=== PATIENT | male | born 1960 | race Caucasian/White ===

== ENCOUNTER 2016-09-06 07:57 | Observation (INO) | payer OTHER ==
[~2016-09-06] VITALS: Ht 200.7 cm; Wt 163.1 kg
[2016-09-06] VITALS (10 sets, daily range): BP systolic 111–172; BP diastolic 70–103; PULSE 88–106; RESP 16–30; O2SAT 93–98
[~2016-09-06 07:57] MED LIST: AMLO5TAB2 PO; AMOX-366 PO
[2016-09-06] MEDS: Diltiazem Inj 125 MG in Dextrose 5% 100 ML IV SCH (08:37)
--- NOTE | 2016-09-06 08:37 | ED.REPORT ---
HPI-General Illness Date of Service Sep 06, 2016 ED Provider: The patient is a 55 year old male who presents to the emergency department complaining of substernal chest pain that woke him from sleep this morning at 0130. His pain has not improved since onset. He has also experienced shortness of breath. He has not had similar symptoms in the past. He denies history of atrial fibrillation. He denies fever, chills, cough, abdominal pain, nausea, vomiting, diarrhea, back pain, extremity pain or diaphoresis. He does not have a primary care provider. He is not on any medications. He denies any known drug allergies. Nursing Notes Stated Complaint: CHEST PAIN Chief Complaint: Chest Pain Nursing Notes Reviewed: Yes Allergies: Coded Allergies: No Known Allergies (Verified , 12/07/15) No Active Prescriptions or Reported Meds General Time Seen by MD: 08:37 Chief Complaint Chest pain Hx Obtained From: Patient Arrived By: Walk-in Sudden in Onset?: Yes Onset Occurred: 5 - 8 hours ago Symptom Duration: Since onset Location: : Chest Quality: Painful Severity: Current: Moderate Severity: Maximum: Moderate Recent Healthcare: No recent doctor visit, No recent hospitalization Similar Sx Previous: No Past Medical History Past Medical History Notes: No PCP Past Medical History Chronic bilateral lower extremity venous stasis Denies: Coronary artery disease, Diabetes mellitus, Hypertension Past Surgical History Hernia repair Reports: Cholecystectomy Family History Noncontributory Smoking History Never Smoker Social History Alcohol Use: Denies alcohol use Drug Use: Denies drug use Other Social History: Good social support, , Local resident Occupation Owns a furniture store Ambulatory Status Independent Review of Systems Full Review of Systems Constitutional: Denies: Chills, Fever Respiratory: Reports: Shortness of breath, Denies: Non-productive cough Cardiovascular: Reports: Chest pain GI: Denies: Abdominal pain, Diarrhea, Nausea, Vomiting Musculoskeletal: Denies: Back pain, Extremity pain Skin: Denies Diaphoresis Complete sys rev & neg: except as marked. Physical Exam Vital Signs Vital Signs Date Time Temp Pulse Resp B/P Pulse Ox O2 Delivery O2 Flow Rate FiO2 09/06/16 11:33 106 24 111/70 94 09/06/16 10:03 104 30 114/79 98 Nasal Cannula 2 09/06/16 09:05 105 24 120/89 93 Room Air 09/06/16 07:59 36.3 102 20 156/103 97 Room Air Initial VS: Reviewed Head / Eyes: Atraumatic, Normocephalic, PERRL ENT: Mucous membranes moist, Conjunctiva normal, No scleral icterus Neck: Supple, Non-tender, Full range of motion Abdomen / GI: Soft, Non-tender, No guarding, No rebound, No distention Lymphatic: No lymphadenopathy Extremities: Neuro intact, No tenderness Skin: Warm, Dry, No cyanosis Neurologic: Alert, Oriented, Nonfocal Psychiatric: Mood/affect normal, Behavior normal, Normal thought content General/Constitutional: Awake, Alert, Well appearing Color normal, not diaphoretic Respiratory / Chest: Atraumatic, Breath sounds NL, Breath sounds = bilat, No respiratory distress, No rales, No rhonchi, No wheezing, No retractions Cardiovascular: Heart sounds NL, No gallop, No murmurs, No rubs, Cap refill not delayed, Peripheral circulation NL, Pulses = bilaterally, No gross BP differential Heart Rate / Rhythm: Positive: Tachycardia Lower Extremity / Pelvis / MS: Neurologic intact Chronic venous stasis changes Interpretation & Diagnostics Lab Results Interpretation Result Diagram: 09/06/16 0826 09/06/16 0826 Test 09/06/16 08:26 09/06/16 10:15 White Blood Count 7.4th/mm3 (3.8-10.1) Red Blood Count 3.82mil/mm3 (4.40-5.80) Hemoglobin 12.6g/dL (13.8-17.2) Hematocrit 36.8% (41.0-50.0) Mean Corpuscular Volume 96.3fL (81-100) Mean Corpuscular Hemoglobin 33.0pg (27.0-35.0) Mean Corpuscular Hemoglobin Concent 34.2% (32.0-37.0) Red Cell Distribution Width 13.2% (12.3-15.4) Platelet Count 207bil/L (150-400) Neutrophils (%) (Auto) 74.9% (40-74) Lymphocytes (%) (Auto) 14.7% (14-46) Monocytes (%) (Auto) 9.1% (4-12) Eosinophils (%) (Auto) 0.9% (0-5) Basophils (%) (Auto) 0.3% (0-3) D-Dimer < 0.5mg/L (<0.50) Sodium Level 137mEq/L (134-144) Potassium Level 4.3mEq/L (3.5-5.2) Chloride Level 100mEq/L (97-108) Carbon Dioxide Level 23mmol/L (18-29) Blood Urea Nitrogen 18mg/dL (6-24) Creatinine 1.05mg/dL (0.76-1.27) Estimat Glomerular Filtration Rate 78mL/min (>59) Glucose Level 121mg/dL (60-99) Calcium Level 8.8mg/dL (8.5-10.1) Magnesium Level 1.9mg/dL (1.6-2.6) Total Bilirubin 0.9mg/dL (0.0-1.2) Aspartate Amino Transf (AST/SGOT) 18U/L (0-50) Alanine Aminotransferase (ALT/SGPT) 13U/L (0-44) Alkaline Phosphatase 62U/L (25-150) Total Protein 8.3g/dL (6.4-8.4) Albumin 4.1g/dL (3.4-5.0) Hold Calabrese Top Tube Received (Received) Troponin T < 0.010ug/L (0.0-0.011) ECG Interpretation ECG Interpretation: Atrial fibrillation with a rate of 127 Time: 08:09 Interpreted by: ED physician ECG Interpretation: Post-cardioversion: Sinus rhythm with PVCs No Ischemia Time: 13:02 Interpreted by: ED physician X-Ray Chest Interpretation Chest Xray Interpretation: IMPRESSION: 1. Low lung volumes, with bilateral atypical pneumonia versus edema. Dictated by: Nicolas Borges M.D. on 09/06/2016 at 8:42 Interpretation / Wet Read by: Interpret - Radiologist Procedures Electrical Cardioversion Electrical Cardioversion: 1251: 50 joules, still in atrial fibrillation 1252: 100 joules, still in atrial fibrillation 1253: 150 joules, converted back into sinus rhythm Time: 12:51 Procedure Performed by: ED physician Indication: Atrial fibrillation Consent / Setup / Site Prep: Informed consent provided, Consent from patient , Time-out performed, Placed on oxygen, Placed on pulse oximeter, Place on cardiac cath rn, Hand hygiene observed Procedural Sedation/Analgesia: Sedation: Propofol (60 mg) Joules: 150 Procedure Successful: Yes Post-Procedure Rhythm: Normal sinus rhythm Post-Procedure / Complications: No complications, Condition improved, Tolerated procedure well, Patient stable Proced Mod Sedation/Analgesia Time: 12:48 Procedure Performed by: ED physician Sedation Time: 10 - 15 min Consent / Setup: Informed consent provided, Consent from patient, No consent - emergent, Hand hygiene observed, Position supine Indication: Other (electrical cardioversion) Preparation: spa attendant applied, Pulse oximeter applied, Constant attendance, IV access established, Eval last meal time, Supplemental oxygen, Procedure explained, Suction available, End tidal CO2 mon applied VS Prior to Procedure: O2 saturation normal, Blood pressure normal, Respiratory rate normal Mallampati: Class & Anatomy: 1 tonsils/uvula/s palate Airway Exam: Normal anatomy CVS/Resp Exam: Normal breath sounds, Normal heart sounds Neuro Exam: Alert, No acute distress, Responsive Sedation: Sedation: Propofol (60 mg) ASA Classification: 1 normal healthy patient Response During Procedure: Handled secretions adeq, Maintained airway well, Oxygenation stable, Sedation appropriate, Vital signs stable Complications During/After: None Reversal: None required Mental Status After Procedure: Alert, Oriented X3, Response to verbal stim, Normal per age, At patient's baseline Post-Procedure: Alert prior to discharge, Ambulatory with assist, Pt rtn pre- proc baseline, Vital signs normal Attestation: I performed procedure, I performed sedation Re-Eval/Medical Decision Med Decision/Clinical Course 55-year-old gentleman with no previous cardiac disease awoke at 1:30 this morning with chest pain and rapid heart rate. Comes in with new onset atrial fibrillation rapid ventricular response. Initial workup including troponin is negative. Discussion with cardiology. I opted to cardiovert which was quite successful. Chest pain has somewhat abated now that he is back in sinus rhythm. Will admit for full cardiac workup and likely will benefit from echocardiogram as well. TSH is added to blood work. All concerns findings and diagnoses reviewed with patient and his today Source of Hx: Old records Time of Eval: 09:30 Re-Evaluation/Progress Note: Pain was improved with nitroglycerin. Time of Eval: 11:38 Re-Evaluation/Progress Note: Rechecked the patient. His symptoms are improved, however he does still complain of mild chest pain. Discussed results, diagnosis, and plan for admission with the patient. He understands and agrees. All questions were addressed. Time of Eval: 12:19 Re-Evaluation/Progress Note: Rechecked the patient. Discussed plan for cardioversion. He agrees with plan. All questions were addressed. Time of Eval: 12:35 Re-Evaluation/Progress Note: Consent was signed for the procedure. Time of Eval: 13:29 Re-Evaluation/Progress Note: The patient is feeling much better. Consultation #1: Referral / Consult Name: Lubna Gómez MD Consulted With: Cardiology Call Returned at: 12:09 Dial Brusher: Agrees with eval, Agrees with plan Note: He would like us to cardiovert him in the emergency department. Consultation #2: Referral / Consult Name: Evaristo Blackwood MD Consulted With: Hospitalist Call Returned at: 12:45 Dial Brusher: Will see patient, Agrees with eval, Agrees with plan, Accepts admit Counseled Regarding: Diagnosis, Lab results, Need for admission Discharge & Departure Primary Impression: New onset atrial fibrillation Additional Impression: Chest pain Chest pain type: unspecified Qualified Code: R07.9 - Chest pain, unspecified Disposition: ADMITTED TO HOSPITAL Discharge Condition All VS Reviewed: Yes Condition: Stable Referrals: NOPCP (PCP) Scribe Attestation Portions of this note were transcribed by Melinda Araya. I, Dr. Fishman personally performed the history, physical exam and medical decision-making; I reviewed and confirmed the accuracy of the information in the transcribed note. Signed by: Getachew Kemp, 09/06/2016 and [id number] Villavicencio MD Sep 06, 2016 08:37 Melinda Araya Sep 06, 2016 08:40
[2016-09-06 08:38] LABS: BASOPHILS % (AUTO) 0.3 % (0-3); EOSINOPHILS % (AUTO) 0.9 % (0-5); MONOCYTES % (AUTO) 9.1 % (4-12); Mean Corpuscular Volume 96.3 fL (81-100); NEUTROPHILS % (AUTO) 74.9 % (40-74); Platelet Count 207 bil/L (150-400)
[2016-09-06] MEDS ORDERED: MeTOProlol 1 mg/mL 5 mL Inj IVPUSH PRN (08:40)
[2016-09-06] MEDS ORDERED: Diltiazem 5 mg/mL 5 mL Inj IVPUSH ONE (08:40)
--- NOTE | 2016-09-06 08:45 | DRSVH ---
PROCEDURE: X-RAY CHEST ONE VIEW, PORTABLE ([id number]) INDICATIONS: chest pain TECHNIQUE: One view of the chest was acquired. COMPARISON: [facility], CR, XR CHEST 1VW (PORTABLE), 12/07/2015, 18:44. FINDINGS: Surgical changes and devices: None. Lungs and pleura: No pleural effusions or pneumothorax. Lung volumes are low. Moderate patchy bilate ral mid and lower lung coarse reticulonodular opacity is present. Mediastinum: Mediastinal contours appear normal. Heart size is enlarged. Bones and chest wall: No suspicious bony lesions. Overlying soft tissues appear unremarkable. IMPRESSION: 1. Low lung volumes, with bilateral atypical pneumonia versus edema. Dictated by: Nicolas Borges M.D. on 09/06/2016 at 8:42 Approved by: Nicolas Borges M.D. on 09/06/2016 at 8:43
[2016-09-06 09:12] LABS: Magnesium 1.9 mg/dL (1.6-2.6)
[2016-09-06 09:18] LABS: TROPONIN T < 0.010 ug/L (0.0-0.011)
[2016-09-06] MEDS ORDERED: Nitroglycerin 2% 1 Gm Ointment TOPICAL ONE (09:40)
[2016-09-06] MEDS ORDERED: Propofol 10 mg/mL 20 mL Inj ONE (12:36)
[2016-09-06] MEDS ORDERED: Propofol 10 mg/mL 20 mL Inj IVPUSH ONE (12:40)
[2016-09-06] MEDS ORDERED: Alum-Mag Hydrox-Simeth 30 mL Suspension PO PRN (13:40)
[2016-09-06] MEDS ORDERED: Ondansetron 2 mg/mL 2 mL Inj IVPUSH PRN (13:40)
[2016-09-06] MEDS ORDERED: 0.9% Sodium Chloride 1,000 ML IV SCH (13:53)
--- NOTE | 2016-09-06 13:53 | PCM.HPMED ---
Subjective Date of Service Sep 06, 2016 Primary Provider: Admitting Physician: Evaristo Blackwood MD Primary Care Physician: Nopcp Attending Physician: Evaristo Blackwood MD Chief Complaint: Chest pain palpitation History of Present Illness: The patient is a 55 year old male who presents to the emergency department complaining of substernal chest pain that woke him from sleep this morning at 0130. His pain has not improved since onset. He has also experienced shortness of breath. He has not had similar symptoms in the past. He denies history of atrial fibrillation. He denies fever, chills, cough, abdominal pain, nausea, vomiting, diarrhea, back pain, extremity pain or diaphoresis. He does not have a primary care provider. He is not on any medications. He denies any known drug allergies. Review of Systems: Gen.: No fevers chills weight loss weight gain Eyes: no visual disturbances or blurring vision HEENT: No nose/throat drainage, no pain in ears or throat, no hearing loss Lymph: No lymph nodes noted Cardiac: no orthopnea, PND, or dyspnea on exertion + pedal edema (chronic) chest pain associated with the palpitations Pulmonary: no cough, wheezing or bringing up of sputum GI: No anorexia nausea vomiting blood or black in the stool : no dysuria hematuria urinary frequency or decrease in urine output Musculoskeletal: Joint swelling no joint pain no new muscle aches or back pain Neuro: No syncope, seizures no loss of consciousness no new focal weakness, numbness or tingling Psychiatric: New new anxiety insomnia or depression Endocrine: No new heat or cold intolerances polyuria or polydipsia Hematology: No lymphadenopathy or easy bleeding or bruising noted skin: No new rashes, stasis dermatitis Allergies Coded Allergies: No Known Allergies (Verified , 12/07/15) Home Medications None PMH No PCP Past Medical History Chronic bilateral lower extremity venous stasis Denies: Coronary artery disease, Diabetes mellitus, Hypertension Past Surgical History Hernia repair Reports: Cholecystectomy Family History-no known history of coronary artery disease or cancer Noncontributory Social History- Alcohol Use: Denies alcohol use Drug Use: Denies drug use Other Social History: Good social support, , Local resident Smoking History Never Smoker Occupation Owns a furniture store Social History Hx Alcohol Use: No Hx Substance Use: No Hx Tobacco Use: No Smoking Status: Never Smoker Exam Vital Signs Vital Sign - Last Date Time Temp Pulse Resp B/P Pulse Ox O2 Delivery O2 Flow Rate FiO2 09/06/16 11:33 106 24 111/70 94 09/06/16 10:03 Nasal Cannula 2 09/06/16 07:59 36.3 Exam Gen.- A+ O 3 no apparent distress. Heavy to obese male Eyes- open conjunctiva clear, pupils equal nonicteric Mouth- oral mucosa moist, no exudate ENT- ears normal, nose normal Neck- supple/trach midline CVS- RRR no murmur or gallop, positive pedal edema Lungs CTA GI- NABS/NT soft Musc- moving 4 no obvious deformity Neuro- cranial nerves II through XII intact to gross examination, nonfocal Skin- warm and dry, no rashes/lesions/wounds noted stasis dermatitis noted bilaterally mid calf down to ankles Psych- pleasant and appropriate, Lab and Diagnostics Labs TSH 0.68, LFTs 12 mL, troponin normal 3 Result Diagram: 09/06/16 0826 09/06/16 08 X-Rays, CTs and MRIs CXR 09/06 IMPRESSION: 1. Low lung volumes, with bilateral atypical pneumonia versus edema. 12-lead ECG Personally reviewed 09/06 . Atrial fibrillation rate 127, EDC 467 ms . When compared with ECG of 07-Dec-2015 18:06:17, * Atrial fibrillation has replaced sinus rhythm * Significant rate increase Cardiac Echo Impressions ECHO 09/03 Paliwal Interpretation Summary The left ventricle is borderline dilated. The ejection fraction is estimated to be 60-65%. The right ventricle is grossly normal size. The right ventricular systolic function is normal. No significant valvular pathology seen. The ascending aorta is moderately enlarged. The IVC is dilated (diameter is greater than 2.1 cm) and it collapses less than 50% with a sniff. This suggests a high right atrial pressure of 15 mm Hg. Assessment & Plan 55-year-old male without prior workup admitted with chest pain with A. fib with RVR. Echocardiogram is normal, will do stress test in the morning. A. fib with RVR- chads score probably about one does not qualify for anticoagulation. HTN- for now we will utilize hydralazine/Norvasc I would like utilize metoprolol after his stress test and probably lisinopril. Obesity-weight loss recommended Prophylaxis- none indicated Disposition- full code from home Patient snores and stops breathing will order overnight oximetry patient may have sleep apnea. Time spent 45 minutes Evaristo Blackwood MD Sep 06, 2016 13:53
[2016-09-06] MEDS ORDERED: Polyethylene Glycol (PEG) 17 Gm Powder PO PRN (13:55)
[2016-09-06] MEDS ORDERED: Senna-Docusate 8.6-50 mg Tablet PO PRN (13:55)
--- NOTE | 2016-09-06 14:20 | NUR ---
Transfer from ED Pt. arrived to room 2030 PCC from the ED. Pt. has no c/o pain, CP, or SOB. Pt. can ambulate by himself in the room and is independent. Pt. at this time resting comfortably in bed.
[2016-09-06] MEDS: Sodium Chloride LOK Flush 10 mL Syringe IVFLUSH SCH (15:42)
--- NOTE | 2016-09-06 16:09 | DRSVH ---
[facility] [address] [place] [address] Echocardiogram Report Name: CLYDE BLOUNT LStudy Date: 09/06/2016 Height: 79 in Hospital Exam Location: [facility] Weight: 351 lb Gender: Male BSA: 2.9 m2 : 1960 Age: 55 yrs BP: 111/70 mmHg Reason For Study: CHEST PAIN Ordering Physician: Performed By: Antonio Branch Interpretation Summary The left ventricle is borderline dilated. The ejection fraction is estimated to be 60-65%. The right ventricle is grossly normal size. The right ventricular systolic function is normal. No significant valvular pathology seen. The ascending aorta is moderately enlarged. The IVC is dilated (diameter is greater than 2.1 cm) and it collapses less than 50% with a sniff. This suggests a high right atrial pressure of 15 mm Hg. Procedure: A two-dimensional transthoracic echocardiogram with color flow and Doppler was performed. The study quality was technically difficult. There is no prior echocardiogram noted for this patient. A contrast injection of Definity was performed to improve assessment of LV function. The patient was in normal sinus rhythm during the exam. Left Ventricle: The left ventricle is borderline dilated. Left ventricular wall thickness is mildly increased. There is no thrombus. The ejection fraction is estimated to be 60-65%. There are no obvious focal wall motion abnormalities noted but poor endocardial definition reduces the sensitivity for the detection of such. Spectral Doppler of the mitral valve shows a normal E/A wave ratio. Right Ventricle: The right ventricle is grossly normal size. The right ventricular systolic function is normal. Atria: The left atrium is mildly dilated. The right atrium is mildly dilated. The interatrial septum is intact with no evidence for an atrial septal defect. Mitral Valve: There is mild mitral annular calcification. The mitral valve leaflets are slightly calcified. There is trace mitral regurgitation. Aortic Valve: The aortic valve is trileaflet. The aortic valve opens well. There is mild aortic valve sclerosis. No aortic regurgitation is present. Tricuspid Valve: The tricuspid valve is normal in structure and function. Pulmonary artery pressures cannot be estimated because of the lack of a measurable TR jet velocity. No tricuspid regurgitation. Pulmonic Valve: The pulmonic valve is not well seen, but is grossly normal. There is trace pulmonic regurgitation. Great Vessels: The aortic root is normal size. The ascending aorta is moderately enlarged. The aortic arch is mildly enlarged. The pulmonary artery is normal size. The IVC is dilated (diameter is greater than 2.1 cm) and it collapses less than 50% with a sniff. This suggests a high right atrial pressure of 15 mm Hg. Pericardium/ Pleura There is no pericardial effusion. There is no pleural effusion. MMode/2D Measurements & Calculations LVIDd: 5.8 cm LA dimension: 5.2 cm RA long axis Ao root diam LVIDs: 4.2 cm FS: 28.1 % LA A2 area: 32.2 cm RA area Aortic Jxn: 3.1 cm EPSS: 0.88 cm LA A4 area: 32.6 cm asc Aorta Diam IVSd: 1.3 cm LA length (vol) : 31.8 cm LVPWd: 1.2 cm RA vol Ao Arch Diam (Prox LA vol: 119.5 ml : 138.ml Trans): 3.5 cm LA vol index RA : 47.7 mm2 IVC diam: 2.8 cm LV lujan. diameter/BSA LV sys. diameter/BSA RVD1 (basal) RVD2 (mid): 4.1 cm (cm/m^2): 2.0 (cm/m^2): 1.4 Doppler Measurements & Calculations Ao V2 max MV E max andrew MV E/A: 2.7 PA V2 max : 120.2 cm/sec : 99.5 cm/sec Med Peak E' Andrew : 67.5 cm/sec Ao max PG MV A max andrew PA mean PG : 5.8 mmHg : 37.2 cm/sec E/E' med: 22.4 Ao mean PG PA Accel Time : 3.5 mmHg : 0.07 sec MV dec time Ao V2 mean PA V2 mean : 0.13 sec : 89.5 cm/sec : 49.7 cm/sec Ao V2 VTI: 22.8 cm PA pr(Accel) : 41.6 mmHg Reading Physician:PM
--- NOTE | 2016-09-06 17:30 | NUR ---
Blood Pressure Pt. had a blood pressure of 172/93, rechecked and it was 152/102. made aware.
[2016-09-06] MEDS ORDERED: Diltiazem 5 mg/mL 5 mL Inj IVPUSH PRN (17:40)
[2016-09-07] VITALS (8 sets, daily range): BP systolic 125–165; BP diastolic 77–111; PULSE 82–94; RESP 16–20; O2SAT 92–97
[2016-09-07] MEDS: Sodium Chloride LOK Flush 10 mL Syringe IVFLUSH SCH ×3 (01:21→17:17)
--- NOTE | 2016-09-07 04:42 | NUR ---
BP/Procedure Prep Patient with BP 165/111. PRN hydralazine given per orders. BP improved to 125/77. Patient NPO after midnight for stress test, beta blockers held and no caffeine given. Patient resting well overnight. Continue to monitor.
[2016-09-07] MEDS: Diltiazem Inj 125 MG in Dextrose 5% 100 ML IV SCH (08:37)
--- NOTE | 2016-09-07 16:09 | NUR ---
Social Work: Screen D: Per EMR review, pt is a 55 year old male admitted for chest pain/AFIB post cardioversion. Pt is [employer] insurance. Pt does not have a PCP. NOK Is [place], . Readmit score is low, 0/8. Advanced directives information provided to pt. Pt lives in [place], is I and works as a salesman. Pt is scheduled for stress test. Pt has been I during admission. No social work needs identified at this time. A: [place]. P: Anticipate pt to discharge home via POV once medically stable; [employer] to continue to follow. SAMIR Carrillo
--- NOTE | 2016-09-07 18:53 | PCM.PNMED ---
Subjective Date of Service Sep 07, 2016 Subjective No complaints of chest pain, dyspnea nausea or vomiting no palpitations Exam Vital Signs Vital Sign - Last Date Time Temp Pulse Resp B/P Pulse Ox O2 Delivery O2 Flow Rate FiO2 09/07/16 16:08 36.6 82 20 137/87 95 Room Air 09/06/16 14:17 2 Intake and Output 09/06/16 09/06/16 09/07/16 Cumulative From/Thru 15:00 23:00 07:00 09/06/16 07:59 - 09/07/16 06:03 Intake Total 1000 ml 405 ml 1405 ml Output Total 250 ml 875 ml 1125 ml Balance 1000 ml -250 ml -470 ml 280 ml Intake Oral 375 ml 375 ml IV Total 1000 ml 30 ml 1030 ml Output Urine Total 250 ml 875 ml 1125 ml Exam Gen.- A+ O 3 no apparent distress. Heavy to obese male Eyes- open conjunctiva clear, pupils equal nonicteric Mouth- oral mucosa moist, no exudate ENT- ears normal, nose normal Neck- supple/trach midline CVS- RRR Lungs regular rate no accessory muscle usage no evidence of respiratory distress GI-generous pannus Musc- moving 4 no obvious deformity Neuro- cranial nerves II through XII intact to gross examination, nonfocal Skin- warm and dry, no rashes/lesions/wounds noted stasis dermatitis noted bilaterally mid calf down to ankles Psych- pleasant and appropriate, Lab and Diagnostics Result Diagram: 09/06/16 0826 09/06/16 0826 X-Rays, CTs and MRIs CXR 09/06 IMPRESSION: 1. Low lung volumes, with bilateral atypical pneumonia versus edema. 12-lead ECG Personally reviewed 09/06 . Atrial fibrillation rate 127, EDC 467 ms . When compared with ECG of 07-Dec-2015 18:06:17, * Atrial fibrillation has replaced sinus rhythm * Significant rate increase Cardiac Echo Impressions ECHO 09/03 Paliwal Interpretation Summary The left ventricle is borderline dilated. The ejection fraction is estimated to be 60-65%. The right ventricle is grossly normal size. The right ventricular systolic function is normal. No significant valvular pathology seen. The ascending aorta is moderately enlarged. The IVC is dilated (diameter is greater than 2.1 cm) and it collapses less than 50% with a sniff. This suggests a high right atrial pressure of 15 mm Hg. Assessment & Plan 55-year-old male without prior workup admitted with chest pain with A. fib with RVR. Echocardiogram is normal, will do stress test in the morning. Chest pain-patient had first portion of his Myoview, unfortunately there w was apical attenuation so he needs a resting portion and given his size he needs to stay until tomorrow do it. A. fib with RVR- chads score probably about one does not qualify for anticoagulation. No further events HTN- for now we will utilize hydralazine/Norvasc I would like utilize metoprolol after his stress test and probably lisinopril. Obesity-weight loss recommended Prophylaxis- none indicated Disposition- full code from home Patient snores and stops breathing will order overnight oximetry patient may have sleep apnea. It is not clear whether nocturnal oximetry ordered 09/06 was ever done I cannot find any notation. We will try and follow-up prior to discharge 09/08. Evaristo Blackwood MD Sep 07, 2016 18:53
--- NOTE | 2016-09-07 19:30 | NUR ---
Activity pt independent in room, staying one more night for second part of stress test tmr. Denied pain through the day. Report given to oncoming RN.
[2016-09-08] MEDS: Sodium Chloride LOK Flush 10 mL Syringe IVFLUSH SCH ×2 (00:50→08:30)
[2016-09-08 00:52] VITALS: BP 169/109; PULSE 87; RESP 18; O2SAT 95
--- NOTE | 2016-09-08 02:05 | NUR ---
Overnight oximetry/BP Patient placed on oximetry overnight due to sleep apnea risk. SpO2 96-97%. Brief episodes of desaturation to 87% noted, which resolved in less than 1 minute. No audible snoring noted. BP elevated at 169/101; hydralazine PO given per orders. Patient NPO after midnight and beta lalit held pending stress test in the morning. Continue to monitor.
[2016-09-08 04:50] VITALS: BP 145/91; PULSE 82; RESP 18; O2SAT 93
[2016-09-08] MEDS: Diltiazem Inj 125 MG in Dextrose 5% 100 ML IV SCH (08:37)
[2016-09-08 10:03] VITALS: PULSE 84
--- NOTE | 2016-09-08 11:10 | PCM.DIMED ---
Discharge Instructions Date of Service Sep 08, 2016 Dates of Hospitalization Sep 06, 2016 at 12:55 Discharge Diagnosis Discharge Diagnosis Atrial fibrillation Chest pain Obesity Sleep apnea Test Results Echocardiogram looked good, stress test was alright however due to your size the tip of the heart was hard to evaluate we are going to treat you for aggressive risk factor modification to prevent the first cardiac event Diet Heart Healthy Activity No restrictions Call your provider Shortness of breath, Chest pain Patient Instructions Get a regular doctor, lose some weight, get a sleep study. We are treating you with aggressive risk factor modification to prevent her first cardiac event. Follow-up plan Patient needs referral to a new primary provider, no need for cardiology follow- up Follow-up with PCP in: Other (get one as soon as possible and get all your screenings done, get a sleep study.) Attending's Statement Patient came in with atrial fibrillation with rapid ventricular response converted quickly with electrical cardioversion in the emergency room and was worked up for his chest pain. This workup was unrevealing. We are recommending aggressive risk factor modification preventative first cardiac event. Also the patient is almost certain to have sleep apnea he needs a sleep evaluation done as soon as possible. He needs a referral to get a new primary care provider as soon as possible. Evaristo Blackwood MD Sep 08, 2016 11:10
[2016-09-08] MEDS ORDERED: ASPI81TA3 PO (11:14)
[2016-09-08] MEDS ORDERED: METO25TA6 PO (11:14)
[2016-09-08] MEDS ORDERED: ATOR20TA65 PO (11:14)
[2016-09-08] MEDS ORDERED: LISI10TA PO (11:14)
--- NOTE | 2016-09-08 11:16 | PCM.DC.MED ---
Discharge Summary Date of Service Sep 08, 2016 Dates of Hospitalization Date of Hospital Admission Sep 06, 2016 at 12:55 Date of Discharge: Sep 08, 2016 Providers: Admitting Physician: Maggie Blackwood MD Primary Care Physician: Kaleigh Attending Physician: Maggie Blackwood MD Diagnosis at Time of Discharge Diagnosis at Time of Discharge Atrial fibrillation Chest pain Obesity Sleep apnea Consultations None Procedures XRay, CTs & MRIs CXR 09/06 IMPRESSION: 1. Low lung volumes, with bilateral atypical pneumonia versus edema. ECG 12 Lead Personally reviewed 09/06 . Atrial fibrillation rate 127, EDC 467 ms . When compared with ECG of 07-Dec-2015 18:06:17, * Atrial fibrillation has replaced sinus rhythm * Significant rate increase Cardiac Echo Impression ECHO 09/03 [place] Interpretation Summary The left ventricle is borderline dilated. The ejection fraction is estimated to be 60-65%. The right ventricle is grossly normal size. The right ventricular systolic function is normal. No significant valvular pathology seen. The ascending aorta is moderately enlarged. The IVC is dilated (diameter is greater than 2.1 cm) and it collapses less than 50% with a sniff. This suggests a high right atrial pressure of 15 mm Hg. Brief History substernal chest pain that woke him from sleep Hospital Course 55-year-old male without prior workup admitted with chest pain with A. fib with RVR. Echocardiogram is normal, will do stress test in the morning. Chest pain-patient had first portion of his Myoview normal, echo pretty normal. Nonetheless we will treat him as high risk with aspirin, atorvastatin, metoprolol and lisinopril. A. fib with RVR- chads score probably about one does not qualify for anticoagulation. No further events. We will anticoagulate with aspirin, patient needs cardiology follow-up 2 weeks after he has a Holter monitor 48-72 hours HTN- discharging patient with metoprolol 25 mg twice a day and lisinopril 10 mg daily Probable sleep apnea-needs referral for sleep study Obesity-weight loss recommended Stasis dermatitis/edema lower extremities- patient uses support hose, consider HCTZ for blood pressure control is at the diuretic as well and may benefit him. Prophylaxis- none indicated Disposition- full code from home Discharging patient home in stable/improved condition no further events.. Exam Vital Signs (Last) Date Time Temp Pulse Resp B/P Pulse Ox O2 Delivery O2 Flow Rate FiO2 1/29/17 10:03 84 09/08/16 04:50 36.6 18 145/91 93 Room Air 09/06/16 14:17 2 Exam Gen.- A+ O 3 no apparent distress. Heavy to obese male Eyes- open conjunctiva clear, pupils equal nonicteric Mouth- oral mucosa moist, no exudate ENT- ears normal, nose normal Neck- supple/trach midline CVS- RRR Lungs regular rate no accessory muscle usage no evidence of respiratory distress GI-generous pannus Musc- moving 4 no obvious deformity Neuro- cranial nerves II through XII intact to gross examination, nonfocal Skin- warm and dry, no rashes/lesions/wounds noted stasis dermatitis noted bilaterally mid calf down to ankles Psych- pleasant and appropriate, Test 09/06/16 08:26 09/06/16 10:15 09/06/16 19:50 09/07/16 05:00 White Blood Count 7.4th/mm3 (3.8-10.1) Red Blood Count 3.82mil/mm3 (4.40-5.80) Hemoglobin 12.6g/dL (13.8-17.2) Hematocrit 36.8% (41.0-50.0) Mean Corpuscular Volume 96.3fL (81-100) Mean Corpuscular Hemoglobin 33.0pg (27.0-35.0) Mean Corpuscular Hemoglobin Concent 34.2% (32.0-37.0) Red Cell Distribution Width 13.2% (12.3-15.4) Platelet Count 207bil/L (150-400) Neutrophils (%) (Auto) 74.9% (40-74) Lymphocytes (%) (Auto) 14.7% (14-46) Monocytes (%) (Auto) 9.1% (4-12) Eosinophils (%) (Auto) 0.9% (0-5) Basophils (%) (Auto) 0.3% (0-3) D-Dimer < 0.5mg/L (<0.50) Sodium Level 137mEq/L (134-144) Potassium Level 4.3mEq/L (3.5-5.2) Chloride Level 100mEq/L (97-108) Carbon Dioxide Level 23mmol/L (18-29) Blood Urea Nitrogen 18mg/dL (6-24) Creatinine 1.05mg/dL (0.76-1.27) Estimat Glomerular Filtration Rate 78mL/min (>59) Glucose Level 121mg/dL (60-99) Calcium Level 8.8mg/dL (8.5-10.1) Magnesium Level 1.9mg/dL (1.6-2.6) Total Bilirubin 0.9mg/dL (0.0-1.2) Aspartate Amino Transf (AST/SGOT) 18U/L (0-50) Alanine Aminotransferase (ALT/SGPT) 13U/L (0-44) Alkaline Phosphatase 62U/L (25-150) Total Protein 8.3g/dL (6.4-8.4) Albumin 4.1g/dL (3.4-5.0) Hold Calabrese Top Tube Received (Received) Thyroid Stimulating Hormone (TSH) 0.680uIU/mL (0.450-4.500) Troponin T < 0.010ug/L (0.0-0.011) Triglycerides Level 43mg/dL (0-149) Cholesterol Level 84mg/dL (100-199) LDL Cholesterol, Calculated 37.400mg/dL (0-99) VLDL Cholesterol 8.600mg/dL HDL Cholesterol 38mg/dL (>39) Cholesterol/HDL Ratio 2.21 (0.0-4.4) Discharge Medications Discharge Medications Aspirin Chew (Aspirin Chew) 81 Mg Chew 81 MG PO DAILY Prescribed by: MAGGIE BLACKWOOD MD Atorvastatin Calcium (Atorvastatin Calcium) 20 Mg Tablet 40 MG PO HS Prescribed by: MAGGIE BLACKWOOD MD Lisinopril (Lisinopril) 10 Mg Tablet 10 MG PO DAILY Prescribed by: MAGGIE BLACKWOOD MD Metoprolol Tartrate (Metoprolol Tartrate) 25 Mg Tablet 25 MG PO Q12 Prescribed by: MAGGIE BLACKWOOD MD Followup Plan Disposition: To home and back to work Follow-up plan Patient needs referral to a new primary provider, Holter monitor 48-72 hours longer is better cardiology follow-up Discharge Diet: Heart Healthy Discharge Activity: No restrictions Patient Instructions Get a regular doctor, lose some weight, get a sleep study. We are treating you with aggressive risk factor modification to prevent her first cardiac event. Follow-up with PCP in: Other (get one as soon as possible and get all your screenings done, get a sleep study.) Follow-up in: Other (cardiology in 3-4 weeks after Holter monitor) Time spent Greater than 30 minutes Maggie Blackwood MD Sep 08, 2016 11:16
[2016-09-08 11:39] VITALS: BP 144/95; PULSE 77; RESP 20; O2SAT 96
--- NOTE | 2016-09-08 13:00 | NUR ---
Discharge after completing Stress Test VVS, denies cpn or assoc sx. Remains in SR after Cardioversion in E.R. Discharge instructions reviewed & signed in detail, prescriptions to pt, all belongings w/ pt. Accompanied by RN to waiting vehicle, in satisfactory condition.
--- NOTE | 2016-09-08 13:05 | DRSVH ---
PROCEDURE: TWO DAY STRESS TEST. Rest and exercise myocardial perfusion SPECT with gated imaging and ejection fraction RADIOPHARMACEUTICAL: 21.4 mCi Tc-99m tetrofosmin IV at rest and 20.6 mCi Tc-99m tetrofosmin IV at pe ak exercise. [id number] was performed. INDICATIONS: CP TECHNIQUE: Radiopharmaceutical was injected at peak stress test, and also at rest. SPECT images wer e obtained. SPECT myocardial perfusion images were displayed in short axis, horizontal long axis, an d vertical long axis views. Gated images were reviewed using [employer] software. COMPARISON: None. CARDIAC STRESS: A standard Gregorio treadmill exercise tolerance test was performed by the patient unde r the supervision of attending staff. The patient exercised for 4 minutes and 54 seconds; functional aerobic impairment (SIDDHARTH) is +43%. The patient achieved 7 METs of workload. Hemodynamic Data: There is normal blood pressure and heart rate response to exercise stress. The pa tient achieved 87% of maximum predicted heart rate at peak exercise. Symptoms: The patient denied chest pain during exercise. EKG: Baseline rhythm was sinus with some PVCs. During exercise, the patient developed frequent PVCs , mostly isolated events with sometimes a bigeminy pattern. Mostly monomorphic PVCs. Sometimes occa sional ventricular couplets. The patient also had one 5-beat run of nonsustained ventricular tachycar [place]. FINDINGS: Raw Data: The patient's weight is 350 pounds. There was increased subdiaphragmatic activity. Signi ficant tissue shadows seen near the base of the heart in NOBLE view. Left Ventricular Function: Resting LV ejection fraction reported to be 50% and stress 47% with resti ng LV end diastolic volume 178 mL. Because of PVCs, the stress LV ejection fraction may not be a iza e estimation of LV function. I do not see any obvious gross focal wall motion abnormalities. During the stress test, LV ejection fraction on visual inspection appears to be more than 50%. On visual inspection, I do not see any obvious transient ischemic dilatation. However, overall LV ca vity appears to be dilated as resting LV end diastolic volume is 178 mL. Myocardial Perfusion: Stress supine, resting supine and stress prone images were compared to each ot her. Stress supine and resting supine images revealed small to moderate-size, mildly to moderately d ecreased perfusion of the basal inferolateral wall. During prone images, that area got better; howev er, the patient developed new, moderate-size, mildly to moderately decreased perfusion of the midsegm ents of the entire lateral wall. I do not see any obvious convincing reversible ischemia pattern. IMPRESSION: 1. No obvious reversible ischemia on perfusion scan. No electrocardiographic changes suggestive of ischemia. 2. Stress and resting supine images reveal mildly to moderately decreased perfusion of the basal inf erolateral wall, which got improved during prone images; however, prone images developed new mid late ral wall defect. The patient's weight is 350 pounds. On raw images, there was soft tissue shadow se en near the base of the heart. There is the possibility of shifting tissue attenuation artifact. Th e patient had worsening premature ventricular contractions during stress with evidence of nonsustaine d ventricular tachycardia. Discussed the findings with hospitalist team. Dictated by: Lubna Gómez M.D. on 09/08/2016 at 11:06 Transcribed by: BUCKY on 09/08/2016 at 16:05 Approved by: Lubna Gómez M.D. on 09/10/2016 at 13:21
== END 2016-09-08 14:02 | disposition home or self-care (01) ==
LOC: SED 08:57 → PCC 12:55
PROVIDERS: ADMIT Hospitalist; ATTEND Hospitalist
DX: I48.91 Unspecified atrial fibrillation (principal); R07.2 Precordial pain; E66.9 Obesity, unspecified; Z68.41 Body mass index [BMI] 40.0-44.9, adult; G47.30 Sleep apnea, unspecified; I87.2 Venous insufficiency (chronic) (peripheral)
CPT/HCPCS: 36415; 71010; 78452; 80053; 80061; 83735; 84443; 84484; 85025; 85379; 92960; 93005; 93017; 94770; 94799; 96361; 96374; 96375; 99285; A9502; C8929; G0378; J1650; J7030; Q9957